=== PATIENT | male | born 1955 | race Caucasian/White ===

== ENCOUNTER → 2021-01-10 | Outpatient (CLI) | payer OTHER | LOC: SJCVCIMAG 08:56 | PROVIDERS: ATTEND Internal Medicine | DX: I35.8 Other nonrheumatic aortic valve disorders (principal); R06.00 Dyspnea, unspecified; E78.00 Pure hypercholesterolemia, unspecified; I45.10 Unspecified right bundle-branch block; K21.9 Gastro-esophageal reflux disease without esophagitis; E78.5 Hyperlipidemia, unspecified; E11.9 Type 2 diabetes mellitus without complications; F41.9 Anxiety disorder, unspecified; F32.9 Major depressive disorder, single episode, unspecified; Z87.891 Personal history of nicotine dependence; Z72.89 Other problems related to lifestyle; Z79.899 Other long term (current) drug therapy ==

== ENCOUNTER → 2021-09-19 | Outpatient (CLI) | payer OTHER ==
[~2021-09-19] MED LIST: ASPIRIN325 PO; OMEPRAZOLE 20 M20 M1 PO; PROZAC20 MG PO; ROSUVASTATIN CAL5 MG PO
[2021-09-19 13:38] LABS: URINE BILIRUBIN NEGATIVE (Negative); URINE BLOOD TRACE (Negative); URINE CLARITY CLEAR; URINE COLOR YELLOW; URINE GLUCOSE-RANDOM* NEGATIVE (Negative); URINE KETONES NEGATIVE (Negative); URINE LEUKOCYTES-REFLEX NEGATIVE (Negative); URINE NITRITE-REFLEX NEGATIVE (Negative); URINE PROTEIN (DIPSTICK) NEGATIVE (Negative); URINE UROBILINOGEN 0.2 E.U./dl (0.2-1.0)
[2021-09-19 13:41] LABS: HEMATOCRIT 46.4 % (42.0-52.0); HEMOGLOBIN 15.5 gm/dL (14.0-18.0); MCH 31.2 pg (26.0-34.0); MCHC 33.4 g/dL (28.0-37.0); MCV 93.6 fL (80.0-100.0); RBC 4.96 mil/uL (4.50-6.00); RDW 13.9 % (10.5-14.5); WBC 5.1 thou/uL (4.0-11.0)
[2021-09-19 13:49] LABS: ALBUMIN 3.8 g/dL (3.4-5.0); CALCIUM 9.5 mg/dL (8.5-10.1); INR 0.96; POTASSIUM 4.5 mmol/L (3.5-5.1); PROTIME 10.5 Seconds (10.5-12.1)
--- NOTE | 2021-09-19 14:56 | EKG ---
[place] [address] [facility] [place] [employer] [place] [address] ELECTROCARDIOGRAM REPORT Name: FAROOQCONNORRADHA LYNCH Room #: [facility]#: [id number] Admission: 09/19/21 Attend Phys: Aaron Balderrama MD Discharge: Date of : 51 Report #: [id number] [facility] Test Date: 2021-09-19 Test Time: 13:31:22 Pat Name: RADHA APARICIO Department: Room: Gender: Compliance Assistant: RIKA MINOR : 1955 Requested By: Aaron Balderrama Order Number: [id number] MD: Bola Gonzales Measurements Intervals [place] Rate: 66 P: 40 TX: 159 QRS: 38 QRSD: 98 T: 26 QT: 428 QTc: 449 Interpretive Statements Sinus rhythm Abnormal R-wave progression, early transition No previous ECG available for comparison Electronically Signed On 09-19-2021 14:56:42 LOAN SERVICE OFFICER by Bola Gonzales [email or web address] <ELECTRONICALLY SIGNED> By: Bola Gonzales MD, [facility] 09/19/21 1456 1331 1331 Bola Gonzales MD, FACC /EPI
== END ==
LOC: PAC 09:52
PROVIDERS: ATTEND Orthopaedic Surgery
DX: Z01.812 Encounter for preprocedural laboratory examination (principal); M47.816 Spondylosis without myelopathy or radiculopathy, lumbar region; M16.11 Unilateral primary osteoarthritis, right hip; Z20.822 Contact with and (suspected) exposure to COVID-19

== ENCOUNTER → 2021-09-23 | Outpatient (CLI) | payer OTHER ==
[~2021-09-23] MED LIST changes: +DILAUDID 4 MG TA4 M1 PO; +MS CONTIN15 MG PO; +PERCOCET 10-321 EACH PO
== END | disposition home or self-care (01) ==
LOC: LAB 09:03
PROVIDERS: ATTEND Orthopaedic Surgery
DX: Z20.822 Contact with and (suspected) exposure to COVID-19 (principal)

== ENCOUNTER 2021-09-24 06:07 | Inpatient (IN) | payer OTHER ==
[~2021-09-24] VITALS: Ht 198.1 cm; Wt 113.4 kg
[~2021-09-24 06:07] MED LIST changes: -DILAUDID 4 MG TA4 M1 PO; -MS CONTIN15 MG PO; -PERCOCET 10-321 EACH PO
[2021-09-24 07:40] VITALS: BP 137/94
[2021-09-24 12:27] VITALS: BP 119/71
--- NOTE | 2021-09-24 13:11 | NUR ---
ASSUMED PT CARE FROM PACU AT 1230. PT IS ALERT & ORIENTED X4. PT HAS IV SITE ON R HAND RUNNING D5 1/2 NS @100ML/HR. PT IS ON ROOM AIR. PT IS ACCUCHECK ACHS. PT HAS RADHA [employer]OSES KNEE HIGH, JOSE RAFAEL DRESSING, SCD. PT IS ON ROOM AIR. GIVEN PAIN MEDICATION PER PT REQUEST. PT AT THE BEDSIDE. FINISHED ADMISSION. PT ON THE BED WATCHING TV, BED ON THE LOWEST POSITION, SIDE RAILS UP, CALL LIGHT WITHIN REACH. WILL CONTINUE TO MONITOR PT. FOLLOW POC.
[2021-09-24 16:47] VITALS: BP 118/64
[2021-09-24 20:13] VITALS: BP 118/63
[2021-09-24 21:06] VITALS: BP 118/63
--- NOTE | 2021-09-25 04:16 | NUR ---
Pt. rested quietly at intervals during the night when checked on during frequent rounds. He c/o pain to the left knee and po pain meds given (see emar). No c/o nausea. Up to the side of the bed and uses the urinal.
--- NOTE | 2021-09-25 11:20 | NUR ---
Chart review. 66 year old male. Left knee. pod # 1. A & o x 4, and able to make his needs know. Lives at home with his . He worked with pt already today and his knee was buckling. he will need to work with pt again. He already bought a walker and had planned on starting outpt therapy tomorrow 0945 at [facility]. Has 3 steps to enter the home and then 5 and 9 stairs inside the home. Manage own medication, drives vehicle. Will see how therapy goes if he dc today or tomorrow. No dme needs.
--- NOTE | 2021-09-25 11:22 | NUR ---
Assumed care of pt at 0700. Pt a&ox4. Pain controlled with prn pain medications. Dressing c/d/i. RA. Pt worked with physical therapy this am, became light headed and dizzy after therapy. Pt is now feeling better. Call light within reach. Family at bedside. Fall precautions in place. Will continue to monitor.
[2021-09-25 20:26] VITALS: BP 113/65
--- NOTE | 2021-09-26 05:15 | NUR ---
Pt. rested quietly at intervals during the night when checked on during frequent rounds. He c/o pain to the left knee and po pain meds given with some relief noted (see emar).
[2021-09-26 08:10] VITALS: BP 116/64
--- NOTE | 2021-09-26 10:40 | NUR ---
Assumed care of pt at 0700. Pt a&ox4. Pain controlled with prn pain medications. Dressing c/d/i. Pt worked with physical therapy this am. Recommending SNF. Up SBA with walker and gaot-belt. Family at bedside. Call light within reach. Fall precations in place. Will continue to monitor.
--- NOTE | 2021-09-26 11:39 | O ---
[facility] [place] [address] OPERATIVE REPORT Name: RADHA APARICIO Room #: [address] [facility] Maximiliano Gallagher#: [id number] Admission: 09/24/21 Attend Phys: Aaron Balderrama MD Discharge: Date of : 51 Report #: [id number] THIS REPORT FOR: cc: Clif Johnson MD, David P. MD Abraham, Scott M. MD ~ DATE OF SERVICE: 09/24/2021 PREOPERATIVE DIAGNOSIS: Left knee osteoarthritis. POSTOPERATIVE DIAGNOSIS: Left knee osteoarthritis. PROCEDURE: Left total knee arthroplasty using Navio robotic assistance. SURGEON: Aaron Balderrama MD CORRESPONDENT: Alberta Trujillo PA-C. INDICATION FOR CORRESPONDENT: Throughout the case, extensive retraction, manipulation of the knee was required. This was afforded to me by my business development assistant. ANESTHESIA: LMA with adductor canal block. IMPLANTS: A [employer] size 8 Journey II BCS Oxinium femur, size 7 tibia, size 11 constrained polyethylene and size 38 patella. TOURNIQUET TIME: 60 minutes. ESTIMATED BLOOD LOSS: 25 mL COMPLICATIONS: None. SPECIMENS: None. CONDITION UPON LEAVING THE OR: Stable. INDICATIONS FOR PROCEDURE: The patient is a 66-year-old gentleman with severe left knee osteoarthritis. He had failed conservative measures for this, and after discussion with him, he elected for left total knee arthroplasty. DESCRIPTION OF PROCEDURE: Risks, benefits, alternatives, complications were discussed in detail with the patient including but not limited to risk of anesthesia, risk of damage to nerves, arteries, blood vessels, risk for infection, bleeding, risk for continued knee pain, need for reoperation. Informed consent was obtained from the patient. Left knee was appropriately marked in the preoperative holding area. IV Ancef was given for preoperative [address] [address] OPERATIVE REPORT Name: ALESSANDRARADHA Francois Room #: [address]-[facility] Maximiliano Gallagher#: [id number] Admission: 09/24/21 Attend Phys: Aaron Balderrama MD Discharge: Date of : 51 Report #: [id number] antibiotics. He was brought to the operating room and placed in supine position on the operating room table. LMA anesthesia was induced without complication. Tourniquet was placed on the left thigh. Left lower extremity was prepped and draped in normal sterile fashion. Timeout was performed properly identifying the patient and procedure as well as the instrumentation and implants. All in the operating room in agreement. Left lower extremity was exsanguinated, tourniquet was inflated. Tourniquet time was 60 minutes. Standard midline approach to the knee was made with 10 blade through the skin. Dissection was taken down sharply to the fascia and deep flaps were developed medially and laterally. Fresh 10 blade was used to make a medial parapatellar arthrotomy and the knee was inspected. There was severe tricompartmental osteoarthritis. ACL and PCL were removed sharply. Reference pins were placed in the femur and the tibia. The knee was digitally mapped using the Kavalia robotic system. Intraoperative plan was made. We sized the size 8 femur, the size 7 tibia and a 10 spacer. After acceptance of the intraoperative plan, the distal femoral cut was made with Navio bur. Distal femoral cutting block was pinned in place and chamfer cuts were made. Attention was turned to the tibia. Remainder of the menisci removed with Bovie cautery. Tibial resection guide was pinned in place using Navio for placement and tibial resection was made. Flexion and extension gaps were then checked and found to have good balance in flexion and extension. There was slight laxity laterally in flexion. It was felt we can make up for this with a constrained implant. Tibia was sized, found to be a size 7. A size 7 tibial trial was placed, pinned and punched. A size 8 femoral trial was placed and box cut was made. This was then trialed with a size 10 and then a size 11 polyethylene. Size 11 polyethylene demonstrated the best stability and range of motion both digitally as well as manually. A 9 mm of bone was resected from the posterior surface of the patella and a size 38 patellar trial button was placed. Knee was taken through range of motion, found to be stable, found to have good patellar tracking. Trial components were removed. Bone ends were thoroughly irrigated with normal saline. A final size 7 tibia, size 8 Journey II BCS Oxinium femur and a size 38 patella were cemented in place using standard cementation techniques. While the cement cured, a periarticular injection consisting of morphine, ropivacaine, epinephrine, Toradol was placed around the knee joint capsule. After the cement cured, tourniquet was deflated. Hemostasis was obtained with Bovie cautery. Final size 11 constrained polyethylene was placed. A gram of vancomycin was placed deep in the joint. Fascia was closed with 0 Vicryl. Skin was closed with 2-0 Vicryl, 3-0 Monocryl. Dermabond and a JOSE RAFAEL dressing was applied. The patient tolerated this procedure well and went to recovery room under care of anesthesia postoperatively. <ELECTRONICALLY SIGNED> By: Aaron Balderrama MD 09/26/21 1139 [id number] [id number] Aaron Balderrama MD /nt
--- NOTE | 2021-09-26 14:44 | NUR ---
spoke with patient regarding dc planning. therapy reports patient interested in post acute care. Gave patient list of skilled facilities that are contracted with [employer]. reviewed process of referral and need for authorization to dc to skilled facility. Likely no auth rec over weekend. patient to review list.
--- NOTE | 2021-09-26 16:24 | NUR ---
kathrine notified that he will dc home tomorrow morning most likely. His will be able to transport him home. Cm passed on information to cm team
[2021-09-26 16:48] VITALS: BP 125/60
--- NOTE | 2021-09-26 16:53 | NUR ---
Spoke with patient and therapy. Plan dc home tomorrow. Offered HH care as opposed to outpatient. Patient reports wants to try home with outpatient. However he requests referral to [facility] just in case not doing well at home. Faxed referral to [facility]. Patient has f/u apt with Dr Balderrama on Thursday to determine how he is doing. Tenative plan dc home in am with outpatient therapy.
[2021-09-26 20:39] VITALS: BP 118/66
[2021-09-27 08:23] VITALS: BP 121/72
[2021-09-27] MEDS ORDERED: PERCOCET 10-321 EACH PO (08:41)
[2021-09-27] MEDS ORDERED: MS CONTIN15 MG PO (08:41)
[2021-09-27] MEDS ORDERED: DILAUDID 4 MG TA4 M1 PO (08:42)
--- NOTE | 2021-09-27 11:29 | NUR ---
Pt Ab & O x4. Pt worked with PT/Ot this shift. Pt VS stable. Pt is x 1 assist with ADLs and cares. Pt received medications as ordered and also received PRN medications. Pt received discharge orders to home. Discharge instructions reviewed with pt and pt verbalized understanding and signed instructions. Pt wheeled to enterence in wheel chair by staff and left hospital without incident with personal belongings in private vehicle
== END 2021-09-27 11:36 | disposition home health service (06) | DRG 470 ==
LOC: OR 06:07 → 4S 12:12 → OR 12:13 → 4S 12:13
PROVIDERS: ADMIT Orthopaedic Surgery; ATTEND Orthopaedic Surgery
PROC: 0SRD069 Replacement of Left Knee Joint with Oxidized Zirconium on Polyethylene Synthetic Substitute, Cemented, Open Approach (ICD-10-PCS; principal; 2021-09-24)
PROC: 3E0T3BZ Introduction of Anesthetic Agent into Peripheral Nerves and Plexi, Percutaneous Approach (ICD-10-PCS; principal; 2021-09-24)
DX: M17.12 Unilateral primary osteoarthritis, left knee (principal)
CPT/HCPCS: 10195; 50010; 50101; 50415; 50954; 51130; 51225; 53000; 53078; 53365; 54118; 56527; 56528; 57095; 57103; 57110; 57127; 59024; 62110; 62900; 64039; 70005